=== PATIENT | male | born 1995 | race Caucasian/White ===

== ENCOUNTER 2024-05-03 08:06 | Emergency (ER) | payer MEDICAID ==
[~2024-05-03] VITALS: Ht 177.8 cm; Wt 79.0 kg
[2024-05-03 08:07] VITALS: BP 138/72; PULSE 127; RESP 16; TEMP 37; O2SAT 98
[2024-05-03] MEDS ORDERED: ONDANSETRON 4MG ODT PO ONE (08:30)
[2024-05-03] MEDS: ONDANSETRON 4MG ODT PO NR (10:22)
[2024-05-03] MEDS ORDERED: NALO4SPR BOTHNSTRLS (13:01)
== END 2024-05-03 13:02 | disposition home or self-care (01) ==
LOC: ER 08:06
DX: T40.2X1A Poisoning by other opioids, accidental (unintentional), initial encounter (principal); F41.9 Anxiety disorder, unspecified; Y92.89 Other specified places as the place of occurrence of the external cause
CPT/HCPCS: 99283; 71045; Q0162